=== PATIENT | female | born 1985 | race Caucasian/White ===

== ENCOUNTER 2020-05-08 12:08 | Emergency (ER) | payer OTHER ==
[2020-05-08] MEDS ORDERED: NAPROSYN500 MG PO (13:46)
[2020-05-08] MEDS ORDERED: CHLORASEPTIC M1 EACH MM (13:46)
== END 2020-05-08 13:52 | disposition home or self-care (01) ==
LOC: ER1 12:08
DX: J02.9 Acute pharyngitis, unspecified (principal); F17.200 Nicotine dependence, unspecified, uncomplicated; Z86.16 Personal history of COVID-19
CPT/HCPCS: 87081; 87880; 99283

== ENCOUNTER 2020-12-05 18:48 | Emergency (ER) | payer OTHER ==
[~2020-12-05 18:48] MED LIST: CHLORASEPTIC M1 EACH MM; NAPROSYN500 MG PO
[2020-12-05 19:46] LABS: HEMOGLOBIN 14.4 gm/dl (12.3-15.3); RED BLOOD COUNT 4.89 M/UL (4.00-5.10); WHITE BLOOD COUNT 13.4 K/UL (4.5-11.0)
[2020-12-05 20:06] LABS: BUN/CREATININE RATIO 16 (0-10)
[2020-12-06] MEDS ORDERED: ASPIRIN CHEWABL81 MG PO (01:09)
== END 2020-12-06 01:50 | disposition home or self-care (01) ==
LOC: ER1 18:48
PROVIDERS: Physician Assistant Medical
DX: R07.9 Chest pain, unspecified (principal); R00.2 Palpitations; F17.200 Nicotine dependence, unspecified, uncomplicated
CPT/HCPCS: 71045; 80053; 81001; 82550; 82553; 83874; 84439; 84443; 84484; 85025; 93005; 99285

== ENCOUNTER → 2021-02-08 | Outpatient (CLI) | payer OTHER ==
[~2021-02-08] MED LIST changes: +ASPIRIN CHEWABL81 MG PO
== END ==
LOC: MAMO 13:47
DX: R92.8 Other abnormal and inconclusive findings on diagnostic imaging of breast (principal)
CPT/HCPCS: 76641-RT; 77065; G0279

== ENCOUNTER → 2021-08-01 | Outpatient (CLI) | payer OTHER | LOC: KOH-I 13:12 | DX: S82.401A Unspecified fracture of shaft of right fibula, initial encounter for closed fracture (principal); S82.891A Other fracture of right lower leg, initial encounter for closed fracture | CPT/HCPCS: 73610 ==